=== PATIENT | female | born 1950 | race Caucasian/White ===

== ENCOUNTER → 2017-07-05 | Outpatient (CLI) | payer OTHER | LOC: BMCIMAGING 08:46 | PROVIDERS: ATTEND Internal Medicine | DX: Z12.31 Encounter for screening mammogram for malignant neoplasm of breast (principal); R92.8 Other abnormal and inconclusive findings on diagnostic imaging of breast; I25.10 Atherosclerotic heart disease of native coronary artery without angina pectoris | CPT/HCPCS: G0202 ==

== ENCOUNTER → 2017-07-10 | Outpatient (CLI) | payer OTHER | LOC: BMCIMAGING 10:00 | PROVIDERS: ATTEND Internal Medicine | DX: R92.8 Other abnormal and inconclusive findings on diagnostic imaging of breast (principal) | CPT/HCPCS: 76641; G0206 ==

== ENCOUNTER → 2018-11-06 | Outpatient (CLI) | payer OTHER | LOC: BMCIMAGING 07:08 | PROVIDERS: ATTEND Internal Medicine | DX: Z12.31 Encounter for screening mammogram for malignant neoplasm of breast (principal) ==

== ENCOUNTER → 2018-11-26 | Outpatient (CLI) | payer OTHER ==
[~2018-11-26] MED LIST: GADOBUTROL 10 ML VIAL IVP ONE
== END ==
LOC: FIMAGING 09:59
PROVIDERS: ATTEND Internal Medicine
DX: C80.1 Malignant (primary) neoplasm, unspecified (principal)
CPT/HCPCS: A9585; C8908; 82565-PO

== ENCOUNTER → 2018-12-25 | Outpatient (CLI) | payer OTHER | LOC: BMCIMAGING 13:46 ==